=== PATIENT | male | born 1965 | race Two or more races ===

== ENCOUNTER 2017-10-28 22:53 | Observation (INO) | payer MEDICAID ==
[~2017-10-28] VITALS: Ht 180.3 cm; Wt 127.0 kg
[2017-10-28] MEDS ORDERED: LORazepam 2MG/ML-1ML VIAL IM ONE (23:30)
[2017-10-28] MEDS ORDERED: HALOPERIDOL LACTATE 5 MG/ML INJ VIAL IM ONE (23:30)
[2017-10-28] MEDS ORDERED: diphenhdrAMINE HCL 50 MG/1 ML VL IM ONE (23:30)
[2017-10-28] MEDS ORDERED: SODIUM CHLORIDE 0.9% 1,000 ML IV ONE (23:45)
[2017-10-29 00:07] LABS: Basophils # (auto) 0.1 uL; Basophils % (auto) 0.9 % (0.0-2.0); Eosinophils # (auto) 0.1 uL; Eosinophils % (auto) 1.7 % (0.0-7.0); Hematocrit 50.1 % (41.0-53.0); Hemoglobin 16.9 g/dL (13.5-17.5); Lymphocytes # (auto) 3.5 uL; Mean Corpuscular Hemoglobin 31.2 pg (28.0-32.0); Mean Corpuscular Hgb Conc. 33.6 g/dL (32.0-36.0); Mean Corpuscular Volume 92.9 fL (80.0-100.0); Monocytes # (auto) 0.3 uL; Monocytes % (auto) 5.4 % (0.0-12.0); Neutrophils # (auto) 2.4 uL; Nucleated Red Blood Cells % 0.3 %; Platelet Count (auto) 189 10^3/uL (140-450); Red Cell Distribution Width 14.5 % (11.8-14.3); White Blood Cell 6.4 10^3/uL (4.4-10.8)
[2017-10-29 00:10] LABS: Acetaminophen < 2.0 ug/mL (10-30); Alanine Aminotransferase 52 U/L (16-61); Albumin 3.3 g/dL (3.4-5.0); Anion Gap 14 (5-15); Aspartate Aminotransferase 33 U/L (15-37); BUN/Creatinine Ratio 8.5; Blood Urea Nitrogen 10 mg/dL (7-18); Calcium 8.1 mg/dL (8.5-10.1); Carbon Dioxide 22 mmol/L (21-32); Chloride 110 mmol/L (98-107); GFR African American 84 mL/min; GFR Non-African American 70 mL/min; Glucose 122 mg/dL (74-106); Magnesium 2.2 mg/dL (1.6-2.6); Potassium 3.2 mmol/L (3.5-5.1); Salicylate 2.4 mg/dL (2.8-20.0); Sodium 146 mmol/L (136-145)
[2017-10-29 00:20] LABS: Alkaline Phosphatase 70 U/L (45-117); Bilirubin, Total < 0.1 mg/dL (0.2-1.0); Total Protein 7.4 g/dL (6.4-8.2)
[2017-10-29 02:29] LABS: Urine Bacteria NONE SEEN /hpf (None Seen); Urine Blood Negative /uL (Negative); Urine Mucus FEW (None Seen); Urine WBC 1 /hpf (0 - 3)
[2017-10-29 02:46] LABS: Amphetamine Screen, Urine NEGATIVE (NEGATIVE); Barbiturate Scree,Urine NEGATIVE (NEGATIVE); Benzodiazephine Screen, Urine NEGATIVE (NEGATIVE); Cannabinoid Screen, Urine NEGATIVE (NEGATIVE); Cocaine Screen, Urine NEGATIVE (NEGATIVE); Opiate Scree,Urine NEGATIVE (NEGATIVE); Phencyclidine Screen, Urine NEGATIVE (NEGATIVE)
[2017-10-29] MEDS ORDERED: MVI in SODIUM CHLORIDE 0.9% 1,010 ML IV ONE (03:31)
[2017-10-29] MEDS ORDERED: THIAMINE HCL 100 MG/ML 2ML VIAL IV ONE (03:45)
[2017-10-29] MEDS: MAGNESIUM SULFATE 1GM/100ML 100 ML IV SCH ×2 (04:06→04:45)
[2017-10-29 10:32] VITALS: BP 117/68
[2017-11-01] MEDS ORDERED: LORazepam 2MG/ML-1ML VIAL ONE (03:21)
== END 2017-10-29 10:58 | disposition home or self-care (01) | DRG 861 ==
LOC: EDBD 22:53 → ER 23:03 → OVERFLOW 23:04 → ER 10-29 10:58
PROVIDERS: ADMIT Physician Assistant; ATTEND Physician Assistant
DX: R41.82 Altered mental status, unspecified (principal); I10 Essential (primary) hypertension; F10.129 Alcohol abuse with intoxication, unspecified; F32.9 Major depressive disorder, single episode, unspecified; F41.9 Anxiety disorder, unspecified; E78.5 Hyperlipidemia, unspecified
CPT/HCPCS: 36415; 80053; 80307; 80320; 80329; 81001; 83735; 84484; 85025; 93005; 96361; 96365; 96372; 96375; 99285; G0378; J3411; J3475; J7030

== ENCOUNTER 2018-05-21 12:36 | Emergency (ER) | payer MEDICAID ==
[~2018-05-21] VITALS: Ht 175.3 cm; Wt 62.5 kg
[~2018-05-21 12:36] MED LIST: ALCO1PAD XX; ATOR40TA52 PO; BLOO1KIT49 XX; CHLO25TA22 PO; DULO20CA PO; GLUC-244 VI; INSLANTI SC; INSREGI SC; POTA20TA53 PO; QUET200T3 PO; RANI150C11 PO; SERT-274 PO
[2018-05-21 12:45] VITALS: BP 132/92
[2018-05-21] MEDS ORDERED: TETANUS-DIPTH-ACEL PERTUSSIS 0.5ML SYRG IM ONE (14:00)
[2018-05-21 15:20] LABS: Basophils # (auto) 0 uL; Basophils % (auto) 0.1 % (0.0-2.0); Eosinophils # (auto) 0 uL; Eosinophils % (auto) 0.1 % (0.0-7.0); Hematocrit 47.7 % (41.0-53.0); Hemoglobin 16.8 g/dL (13.5-17.5); Lymphocytes # (auto) 1.6 uL; Lymphocytes % (auto) 11.8 % (10.0-50.0); Mean Corpuscular Hemoglobin 30.9 pg (28.0-32.0); Mean Corpuscular Hgb Conc. 35.1 g/dL (32.0-36.0); Mean Corpuscular Volume 88.1 fL (80.0-100.0); Monocytes # (auto) 0.8 uL; Monocytes % (auto) 5.6 % (0.0-12.0); Neutrophils # (auto) 11.3 uL; Neutrophils % (auto) 82.4 % (37.0-80.0); Nucleated Red Blood Cells % 0.1 %; Platelet Count (auto) 185 10^3/uL (140-450); Red Blood Cells 5.42 10^6/uL (4.5-5.90); Red Cell Distribution Width 13.1 % (11.8-14.3); White Blood Cell 13.7 10^3/uL (4.4-10.8)
[2018-05-21 15:41] LABS: Albumin 3.7 g/dL (3.4-5.0); BUN/Creatinine Ratio 12.9; Bilirubin, Total 0.3 mg/dL (0.2-1.0); Calcium 8.7 mg/dL (8.5-10.1); Magnesium 2.2 mg/dL (1.6-2.6); Total Protein 8.1 g/dL (6.4-8.2)
[2018-05-21 16:04] LABS: Potassium 2.8 mmol/L (3.5-5.1)
[2018-05-22 03:09] LABS: RPR Non Reactive (Non Reactive)
[2018-05-22 10:05] LABS: Hepatitis B Surface Antibody Positive
[2018-05-22 10:44] LABS: Hepatitis A Total Antibody Positive
[2018-05-22 13:11] LABS: Hepatitis B Surface Antigen Negative (Negative)
[2018-05-22 13:14] LABS: Hepatitis B Core Total AB Positive
[2018-05-22 13:15] LABS: Hepatitis C Antibody Positive (Negative)
== END 2018-05-21 15:06 ==
LOC: ER 12:36
DX: S05.12XA Contusion of eyeball and orbital tissues, left eye, initial encounter (principal); S05.11XA Contusion of eyeball and orbital tissues, right eye, initial encounter; H11.31 Conjunctival hemorrhage, right eye; E78.5 Hyperlipidemia, unspecified; I10 Essential (primary) hypertension; F17.210 Nicotine dependence, cigarettes, uncomplicated; Z79.4 Long term (current) use of insulin; X58.XXXA Exposure to other specified factors, initial encounter; Y93.89 Activity, other specified; Y92.89 Other specified places as the place of occurrence of the external cause; Y99.8 Other external cause status
CPT/HCPCS: 36415; 70450; 70486; 80053; 83735; 85025; 86592; 86703; 86704; 86706; 86708; 86803; 87340; 90471; 90715